=== PATIENT | male | born 1935 | race African-American/Black ===

== ENCOUNTER 2016-11-27 14:36 | Emergency (ER) | payer MEDICARE ==
[~2016-11-27] VITALS: Ht 175.3 cm; Wt 89.0 kg
[~2016-11-27 14:36] MED LIST: ALLEGRA-D 1212 HOUR PO; ALLEGRA-D 2424 HOUR PO; ASPIRIN EC81 MG PO; AUGMENTIN500TAB PO; AUGMENTIN875TAB PO; BENAZEPRIL10 M1 PO; CEFTIN250 MG PO; CEPHALEXIN500 M1 OR; CIPROFLOXACN500 MG PO; CLONIDINE0.1 MG PO; DICLOFENAC SODI75 MG PO; DICLOFENAC75 MG PO; FAMOTIDINE20 M1 PO; FERR SULFATE325 MG PO; FLONASE NASAL50 MCG; FLULAVAL IM; GLIPIZIDE5 M2 PO; HYDROCHLOROT50 MG PO; HYDROCO/APAP1 T10 PO; K-DUR/KLOR-CON10 ME1 PO; K-DUR/KLOR-CON10 MEQ PO; KLOR-CON M2020 MEQ PO; LIPITOR80 M1 PO; LISINOPRIL5 MG PO; LOPRESSOR 550 MG/TAB PO; LORATADINE10 M1 PO; LOVASTATIN20 MG PO; MECLIZINE25 MG PO; MEDDOSEPAK OR; METFORMIN500 MG PO; METOPROL TAR100 MG PO; PANTOPRAZOLE SO40 M1 PO; PROAIR HFA IN; PROVENTIL IN; RANEXA PO; RANITIDINE150 M1 PO; RANITIDINE150 MG PO; RANITIDINE75 M1 PO; SERTRALINE50 MG PO; SYMBICORT 80-4.5MCG PO; TOPROL XL; XOPENEX HFA IN; XYZAL5 MG PO; ZOLPIDEM5 MG PO; ZPAK PO; ZYRTEC-D ALG PO
[2016-11-27 16:16] LABS: HEMATOCRIT 34.3 % (39.0-50.0); HEMOGLOBIN 10.8 g/dl (14.0-18.0); IMMATURE GRANULOCYTES 0.2 % (0.0-1.0); MEAN CELL VOLUME 65.2 fL CALC (80.0-100.0); MEAN CORPUSCULAR HGB 20.5 pG CALC (26.0-32.0); MEAN CORPUSCULAR HGB CONC 31.5 g/L CALC (32.0-36.0); NEUT# 3.28 thou/uL (1.82-7.42); RED BLOOD COUNT 5.26 mill/uL (4.70-6.10); RED CELL DISTRI WIDTH 22.3 % (11.5-15.5)
[2016-11-27 16:25] LABS: ALBUMIN 4.1 g/dL (3.2-5.0); ALKALINE PHOSPHATASE 80 u/l (38-126); ANION GAP 15 (6-22 (CALC)); BILIRUBIN, TOTAL 0.6 mg/dL (0.0-1.4); BUN 25 mg/dL (8-23); BUN/CREATININE RATIO 24 (12-20 (CALC)); CALCIUM 9.7 mg/dL (8.4-10.2); CARBON DIOXIDE 22 mmol/l (22-30); CHLORIDE 110 mmol/l (95-108); GFR > 60 ML/MIN (>=60 (CALC)); GFR FOR AFR.AMER. > 60 ML/MIN (>=60 (CALC)); GLUCOSE 72 mg/dL (82-115); POTASSIUM 4.5 mmol/l (3.5-5.1); SGOT/AST 25 u/l (19-48); SGPT/ALT 28 u/l (11-66); SODIUM 143 mmol/l (137-146); TOTAL PROTEIN 7.6 g/dL (6.3-8.2)
[2016-11-27 17:27] LABS: MYOGLOBIN 55 ng/mL (0 - 121)
[2016-11-27 17:33] LABS: URINE BILIRUBIN - DIPSTICK NEGATIVE (NEGATIVE); URINE BLOOD DIPSTICK TRACE-INTACT (NEGATIVE); URINE CLARITY CLEAR; URINE COLOR YELLOW; URINE GLUCOSE - DIPSTICK NEGATIVE (NEGATIVE); URINE KETONE NEGATIVE (NEGATIVE); URINE LEUK ESTERASE NEGATIVE (NEGATIVE); URINE NITRITE - DIPSTICK NEGATIVE (Negative); URINE PROTEIN - DIPSTICK NEGATIVE (NEG-TRACE); URINE UROBILINOGEN - DIPSTICK 0.2 E.U./dL (0.2)
[2016-11-27] MEDS ORDERED: NITRO PATCH (17:53)
[2016-11-27 18:04] VITALS: BP 168/80
== END 2016-11-27 18:12 | disposition home or self-care (01) ==
LOC: ED 14:36
PROVIDERS: Emergency Medicine
DX: I10 Essential (primary) hypertension (principal); K21.9 Gastro-esophageal reflux disease without esophagitis; E11.9 Type 2 diabetes mellitus without complications; R94.31 Abnormal electrocardiogram [ECG] [EKG]; R51 Headache

== ENCOUNTER → 2018-05-21 | Outpatient (REF) | payer MEDICARE ==
[~2018-05-21] VITALS: Ht 175.3 cm; Wt 88.9 kg
[~2018-05-21] MED LIST changes: +ALLERGY RE50 MCG/ACT; +ATORVASTATIN CA40 MG PO; +DITROPAN5 MG/TA1 PO; +LOSARTAN POT50 MG PO; +METFORMIN500 M2 PO; +METOPROLOL TART50 MG PO; +NITRO PATCH; +NORCO1 TA2 PO; +PANTOPRAZOLE SO40 MG PO; +SG ASA LOW81 M1 PO; +SYMBICORT1 AE1 IN; +TRANSDERM-NITR0.4 MG TD
[2018-05-21 15:54] VITALS: BP 111/68
== END | disposition home or self-care (01) ==
LOC: ORM 10:30 → PO 10:34
PROVIDERS: ATTEND Internal Medicine Gastroenterology
DX: Z01.818 Encounter for other preprocedural examination (principal); Z12.11 Encounter for screening for malignant neoplasm of colon; K21.9 Gastro-esophageal reflux disease without esophagitis; R10.13 Epigastric pain; R13.10 Dysphagia, unspecified; G47.30 Sleep apnea, unspecified; E11.9 Type 2 diabetes mellitus without complications; J44.9 Chronic obstructive pulmonary disease, unspecified; I25.10 Atherosclerotic heart disease of native coronary artery without angina pectoris; J45.909 Unspecified asthma, uncomplicated; Z98.890 Other specified postprocedural states; Z95.818 Presence of other cardiac implants and grafts; R26.81 Unsteadiness on feet; R32 Unspecified urinary incontinence

== ENCOUNTER 2018-05-25 06:43 | Day surgery (SDC) | payer MEDICARE ==
[~2018-05-25] VITALS: Ht 175.3 cm; Wt 88.9 kg
[2018-05-25 09:47] VITALS: BP 110/77
== END 2018-05-25 10:07 | disposition home or self-care (01) ==
LOC: ENDO 06:43 → ORM 14:35 → ENDO 17:00 → ORM 17:00
PROVIDERS: ATTEND Internal Medicine Gastroenterology
PROC: 0DBL8ZX Excision of Transverse Colon, Via Natural or Artificial Opening Endoscopic, Diagnostic (ICD-10-PCS; principal; 2018-05-25)
PROC: 0DB78ZX Excision of Stomach, Pylorus, Via Natural or Artificial Opening Endoscopic, Diagnostic (ICD-10-PCS; 2018-05-25)
PROC: 0DB48ZX Excision of Esophagogastric Junction, Via Natural or Artificial Opening Endoscopic, Diagnostic (ICD-10-PCS; 2018-05-25)
PROC: 0D758ZZ Dilation of Esophagus, Via Natural or Artificial Opening Endoscopic (ICD-10-PCS; 2018-05-25)
DX: Z12.11 Encounter for screening for malignant neoplasm of colon (principal); K57.30 Diverticulosis of large intestine without perforation or abscess without bleeding; D12.3 Benign neoplasm of transverse colon; K64.4 Residual hemorrhoidal skin tags; K64.8 Other hemorrhoids; Q39.8 Other congenital malformations of esophagus; K21.9 Gastro-esophageal reflux disease without esophagitis; K29.50 Unspecified chronic gastritis without bleeding; K29.80 Duodenitis without bleeding; K44.9 Diaphragmatic hernia without obstruction or gangrene; K31.7 Polyp of stomach and duodenum; R63.4 Abnormal weight loss; I10 Essential (primary) hypertension; E11.9 Type 2 diabetes mellitus without complications; Z95.5 Presence of coronary angioplasty implant and graft

== ENCOUNTER 2019-06-05 | Emergency (ER) | payer MEDICARE ==
[2019-06-05 21:15] LABS: HEMATOCRIT 36.9 % (39.0-50.0); HEMOGLOBIN 11.3 g/dl (14.0-18.0); IMMATURE GRANULOCYTES 0.2 % (0.0-5.0); MEAN CELL VOLUME 68.6 fL CALC (80.0-100.0); MEAN CORPUSCULAR HGB CONC 30.6 g/L CALC (32.0-36.0); NEUT# 3.06 thou/uL (1.82-7.42); RED BLOOD COUNT 5.38 mill/uL (4.70-6.10); RED CELL DISTRI WIDTH 15.9 % (11.5-15.5); URINE BILIRUBIN - DIPSTICK NEGATIVE (NEGATIVE); URINE BLOOD DIPSTICK TRACE-INTACT (NEGATIVE); URINE COLOR YELLOW; URINE GLUCOSE - DIPSTICK NEGATIVE (NEGATIVE); URINE KETONE NEGATIVE (NEGATIVE); URINE LEUK ESTERASE NEGATIVE (NEGATIVE); URINE NITRITE - DIPSTICK NEGATIVE (Negative); URINE PH 5.5 (4.5-8.0); URINE PROTEIN - DIPSTICK NEGATIVE (NEG-TRACE); URINE SPECIFIC GRAVITY >=1.030; URINE UROBILINOGEN - DIPSTICK 0.2 E.U./dL (0.2)
[2019-06-05 21:32] LABS: ALBUMIN 4.1 g/dL (3.2-5.0); ALKALINE PHOSPHATASE 58 u/l (38-126); BUN 17 mg/dL (8-23); BUN/CREATININE RATIO 16 (12-20 (CALC)); CHLORIDE 109 mmol/l (95-108); CREATININE 1.1 mg/dL (0.7-1.3); GFR > 60 ML/MIN (>=60 (CALC)); GFR FOR AFR.AMER. > 60 ML/MIN (>=60 (CALC)); POTASSIUM 4.3 mmol/l (3.5-5.1); SGOT/AST 32 u/l (19-48); SODIUM 141 mmol/l (137-146); TOTAL PROTEIN 7.7 g/dL (6.3-8.2)
[2019-06-05 21:36] LABS: ANION GAP 11 (6-22 (CALC)); BILIRUBIN, TOTAL 0.4 mg/dL (0.0-1.4); CARBON DIOXIDE 25 mmol/l (22-30)
[2019-06-05 21:43] LABS: MYOGLOBIN 123 ng/mL (0 - 121)
== END 2019-06-05 22:26 | disposition home or self-care (01) ==
PROVIDERS: Emergency Medicine
DX: E11.65 Type 2 diabetes mellitus with hyperglycemia (principal); I10 Essential (primary) hypertension; Z79.84 Long term (current) use of oral hypoglycemic drugs

== ENCOUNTER 2019-12-10 12:26 | Emergency (ER) | payer MEDICARE ==
[~2019-12-10] VITALS: Ht 175.3 cm; Wt 85.5 kg
[2019-12-10 14:01] LABS: ALKALINE PHOSPHATASE 73 u/l (38-126); BILIRUBIN, TOTAL 0.5 mg/dL (0.0-1.4); BUN 27 mg/dL (8-23); BUN/CREATININE RATIO 24 (12-20 (CALC)); CARBON DIOXIDE 23 mmol/l (22-30); CHLORIDE 107 mmol/l (95-108); CREATININE 1.1 mg/dL (0.7-1.3); GFR > 60 ML/MIN (>=60 (CALC)); GFR FOR AFR.AMER. > 60 ML/MIN (>=60 (CALC)); SGOT/AST 33 u/l (19-48); SODIUM 138 mmol/l (137-146); TOTAL PROTEIN 7.5 g/dL (6.3-8.2)
[2019-12-10 14:05] LABS: ANION GAP 14 (6-22 (CALC)); POTASSIUM 5.5 mmol/l (3.5-5.1)
[2019-12-10] MEDS ORDERED: KAYEXALATE15 GM/60 M PO (14:20)
[2019-12-10 14:45] VITALS: BP 149/83
== END 2019-12-10 14:45 | disposition home or self-care (01) ==
LOC: ED 12:26
DX: E87.5 Hyperkalemia (principal); E11.9 Type 2 diabetes mellitus without complications; I10 Essential (primary) hypertension; Z79.84 Long term (current) use of oral hypoglycemic drugs

== ENCOUNTER 2022-09-15 15:36 | Emergency (ER) | payer MEDICARE ==
[~2022-09-15] VITALS: Ht 175.3 cm; Wt 71.0 kg
[~2022-09-15 15:36] MED LIST changes: +KAYEXALATE15 GM/60 M PO
[2022-09-15 15:42] VITALS: BP 143/86
[2022-09-15 15:45] VITALS: BP 122/74
[2022-09-15 16:00] VITALS: BP 121/72
[2022-09-15 16:15] VITALS: BP 115/70
[2022-09-15] MEDS ORDERED: TYLENOL500 MG PO (16:23)
[2022-09-15 16:30] VITALS: BP 112/73
[2022-09-15 16:38] VITALS: BP 112/73
== END 2022-09-15 16:39 | disposition home or self-care (01) ==
LOC: ED 15:36
DX: S93.401A Sprain of unspecified ligament of right ankle, initial encounter (principal); I10 Essential (primary) hypertension; E11.9 Type 2 diabetes mellitus without complications; W01.0XXA Fall on same level from slipping, tripping and stumbling without subsequent striking against object, initial encounter; Y92.009 Unspecified place in unspecified non-institutional (private) residence as the place of occurrence of the external cause; Z79.84 Long term (current) use of oral hypoglycemic drugs